=== PATIENT | male | born 1940 | race Caucasian/White ===

== ENCOUNTER → 2016-09-09 | Outpatient (CLI) | payer MEDICARE ==
[~2016-09-09] MED LIST: ASPI-860 PO; CIPR500T4 PO; DIGO125T PO; DILT180C54 PO; LSNP10T PO; METO100T2 PO; PRV20T PO
[2016-09-09 14:21] LABS: MEAN CORPUSCULAR HGB CONC 32.8 g/dL (31.0-37.0); MEAN CORPUSCULAR VOLUME 96 FL (80-100); MEAN PLATELET VOLUME 10.3 FL (6.0-9.5); PLATELET COUNT 473 10^3uL (150-450); WHITE BLOOD COUNT 11.82 10^3uL (4.0-11.0)
[2016-09-09 14:23] LABS: MEAN CORPUSCULAR HEMOGLOBIN 31.4 PG (26.0-34.0)
[2016-09-09 14:26] LABS: BAND NEUTROPHILS % 1 % (0-6); EOSINOPHILS % 1 % (0-4); LYMPHOCYTES # 0.8 #; MONOCYTES # 0.7 #; MONOCYTES % 6 % (3-11); RBC MORPH NORMAL (NORMAL); SEGMENTED NEUTROPHILS % 84 % (51-67); TOTAL CELLS COUNTED 100
[2016-09-09 14:27] LABS: BILIRUBIN,URINE Negative (Negative); CLARITY,URINE Clear; COLOR,URINE Yellow; GLUCOSE, URINE (UA) Negative (Negative); LEUKOCYTE ESTERASE ,URINE Negative (Negative)
[2016-09-09 14:58] LABS: ALBUMIN 4.4 g/dL (3.4-5.0); ANION GAP 13.9 MEQ/L (3-15); CALCULATED IONIZED CALCIUM 4.5 mg/dL (3.8-4.6)
--- NOTE | 2016-09-09 15:01 | Diagnostic Imaging Report ---
INDICATION: Persistent atrial fibrillation. COMPARISON STUDY: Chest from 5 days ago. FINDINGS: Frontal lateral views of the chest demonstrate stable borderline cardiomegaly with normal vascularity. The lungs are clear. The left diaphragm remains elevated. Mild calcifications are seen within the aorta. IMPRESSION: There are no acute findings. Dictated by: Dictated on workstation # [id number]
== END ==
LOC: LAB 14:03
PROVIDERS: ATTEND Family Medicine
DX: I48.1 Persistent atrial fibrillation (principal); R79.89 Other specified abnormal findings of blood chemistry; E78.2 Mixed hyperlipidemia; D50.8 Other iron deficiency anemias; N39.0 Urinary tract infection, site not specified; E03.2 Hypothyroidism due to medicaments and other exogenous substances; M81.0 Age-related osteoporosis without current pathological fracture
CPT/HCPCS: 36415; 71020; 80053; 80061; 80162; 81003; 82306; 84436; 84443; 85025; 93005

== ENCOUNTER 2016-09-27 13:15 | Emergency (ER) | payer MEDICARE ==
[~2016-09-27] VITALS: Ht 175.3 cm; Wt 76.7 kg
--- NOTE | 2016-09-27 14:40 | NUR ---
LEG BAG APPLIED AND TEACHING DONE ON THE CHANGING OF THE BAGS AND DRAINING THE URINE
[2016-09-27 15:23] VITALS: BP 124/74
[2016-09-27 19:22] LABS: BILIRUBIN,URINE Negative (Negative); CLARITY,URINE Clear; COLOR,URINE Yellow; GLUCOSE, URINE (UA) Negative (Negative); LEUKOCYTE ESTERASE ,URINE Negative (Negative); PH,URINE 6.5 (5.0 - 8.0); UROBILINOGEN,URINE 0.2 mg/dL (0.2-1.0)
[2016-09-27 19:41] LABS: URINE CENTRIFUGED VOLUME 12 mL
== END 2016-09-27 15:24 | disposition home or self-care (01) ==
LOC: ED 13:16
DX: N40.1 Benign prostatic hyperplasia with lower urinary tract symptoms (principal); R33.8 Other retention of urine
CPT/HCPCS: 51702; 81003; 81015; 99283

== ENCOUNTER → 2016-10-30 | Outpatient (CLI) | payer MEDICARE ==
[2016-10-30 15:20] LABS: BILIRUBIN,URINE Negative (Negative); CLARITY,URINE Clear; COLOR,URINE Yellow; GLUCOSE, URINE (UA) Negative (Negative); LEUKOCYTE ESTERASE ,URINE Negative (Negative)
== END ==
LOC: LAB 14:44
PROVIDERS: ATTEND Family Medicine
DX: R31.0 Gross hematuria (principal); N41.9 Inflammatory disease of prostate, unspecified
CPT/HCPCS: 36415; 81003; 84153

== ENCOUNTER 2016-12-18 13:04 | Emergency (ER) | payer MEDICARE ==
[~2016-12-18] VITALS: Ht 175.3 cm; Wt 72.4 kg
--- OUTSIDE RECORDS SUMMARY | 2016-12-18 13:16 | XMS REPORT | Continuity of Care Document ---
Author Author 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 04/21/2012 Ot E920.4 ACCID-OTHER HAND TOOLS 08/22/2014 Ot 244.9 08/22/2014 Ot 272.0 08/22/2014 Ot 285.9 08/22/2014 Ot 427.31 08/22/2014 Ot 599.0 08/22/2014 Ot 733.00 08/22/2014 Ot 790.6 08/22/2014 Ot V76.44 08/22/2014 Ot 272.0 08/22/2014 Ot 790.6 08/22/2014 Ot V58.69 08/22/2014 HANNAH SPEARS, RILEY Stevens Ot 786.50 08/22/2014 HANNAH SPEARS, RILEY Stevens Ot 789.00 08/22/2014 HANNAH SPEARS, RILEY Stevens Ot 272.0 08/22/2014 HANNAH SPEARS, RILEY Stevens Ot 426.4 08/22/2014 HANNAH SPEARS, RILEY Stevens Ot 427.31 08/22/2014 HANNAH SPEARS, RILEY Stevens Ot 790.93 08/22/2014 HANNAH SPEARS, RILEY Stevens Ot 790.6 08/22/2014 HANNAH SPEARS, RILEY Stevens Ot 793.11 12/28/2014 HANNAH SPEARS, RILEY Stevens Ot 272.0 12/28/2014 HANNAH SPEASR, RILEY Stevens Ot 285.9 12/28/2014 HANNAH SPEARS, RILEY Stevens Ot 427.31 12/28/2014 HANNAH SPEARS, RILEY Stevens Ot 599.0 12/28/2014 HANNAH SPEARS, RILEY R Ot 786.2 12/28/2014 HANNAH SPEARS, RILEY R Ot V76.44 01/19/2015 HANNAH SPEARS, RILEY R Ot 272.0 01/19/2015 HANNAH SPEARS, RILEY R Ot 285.9 01/19/2015 HANNAH SPEARS, RILEY R Ot 427.31 01/19/2015 HANNAH SPEARS, RILEY R Ot 599.0 01/19/2015 HANNAH SPEARS, RILEY R Ot 786.2 01/19/2015 HANNAH SPEARS, RILEY R Ot V76.44 08/17/2015 Ot 244.9 08/17/2015 Ot 272.0 08/17/2015 Ot 285.9 08/17/2015 Ot 427.31 08/17/2015 Ot 599.0 08/17/2015 Ot 733.00 08/17/2015 Ot 790.6 08/17/2015 Ot V76.44 08/17/2015 Ot 272.0 08/17/2015 Ot 790.6 08/17/2015 Ot V58.69 08/17/2015 HANNAH SPEARS, RILEY R Ot 786.50 08/17/2015 HANNAH SPEARS, RILEY R Ot 789.00 08/17/2015 HANNAH SPEARS, RILEY R Ot 272.0 08/17/2015 HANNAH SPEARS, RILEY R Ot 426.4 08/17/2015 HANNAH SPEARS, RILEY R Ot 427.31 08/17/2015 HANNAH SPEARS, RILEY R Ot 790.93 08/17/2015 HANNAH SPEARS, RILEY R Ot 790.6 08/17/2015 HANNAH SPEARS, RILEY R Ot 793.11 08/17/2015 HANNAH SPEARS, RILEY R Ot 272.0 08/17/2015 HANNAH SPEARS, RILEY R Ot 285.9 08/17/2015 HANNAH SPEARS, RILEY R Ot 427.31 08/17/2015 HANNAH SPEARS, RILEY R Ot 599.0 08/17/2015 HANNAH SPEARS, RILEY R Ot 786.2 08/17/2015 HANNAH SPEARS, RILEY R Ot V76.44 09/04/2015 Ot 244.9 09/04/2015 Ot 272.0 09/04/2015 Ot 285.9 09/04/2015 Ot 427.31 09/04/2015 Ot 599.0 09/04/2015 Ot 733.00 09/04/2015 Ot 790.6 09/04/2015 Ot V76.44 09/04/2015 Ot 272.0 09/04/2015 Ot 790.6 09/04/2015 Ot V58.69 09/04/2015 HANNAH SPEARS, RILEY R Ot 786.50 09/04/2015 HANNAH SPEARS, RILEY R Ot 789.00 09/04/2015 HANNAH SPEARS, RILEY R Ot 272.0 09/04/2015 HANNAH SPEARS, RILEY R Ot 426.4 09/04/2015 HANNAH SPEARS, RILEY R Ot 427.31 09/04/2015 HANNAH SPEARS, RILEY R Ot 790.93 09/04/2015 HANNAH SPEARS, RILEY R Ot 790.6 09/04/2015 HANNAH SPEARS, RILEY R Ot 793.11 09/04/2015 HANNAH SPEARS, RILEY R Ot 272.0 09/04/2015 HANNAH SPEARS, RILEY R Ot 285.9 09/04/2015 HANNAH SPEARS, RILEY R Ot 427.31 09/04/2015 HANNAH SPEARS, RILEY R Ot 599.0 09/04/2015 HANNAH SPEARS, RILEY R Ot 786.2 09/04/2015 HANNAH SPEARS, RILEY R Ot V76.44 10/08/2015 HANNAH SPEARS, RILEY R Ot D50.8 10/08/2015 HANNAH SPEARS, RILEY R Ot E03.4 10/08/2015 HANNAH SPEARS, RILEY R Ot E78.0 10/08/2015 HANNAH SPEARS, RILEY R Ot I48.1 10/08/2015 HANNAH SPEARS, RILEY R Ot M81.0 10/08/2015 HANNAH SPEARS, RILEY R Ot N39.0 10/08/2015 HANNAH SPEARS, RILEY R Ot R79.89 10/10/2015 HANNAH SPEARS, RILEY R Ot D50.8 10/10/2015 HANNAH SPEARS, RILEY R Ot E03.4 10/10/2015 HANNAH SPEARS, RILEY R Ot E78.0 10/10/2015 HANNAH SPEARS, RILEY R Ot I48.1 10/10/2015 HANNAH SPEARS, RILEY R Ot M81.0 10/10/2015 HANNAH SPEARS, RILEY R Ot N39.0 10/10/2015 HANNAH SPEARS, RILEY R Ot R79.89 10/10/2015 HANNAH SPEARS, RILEY R Ot D50.8 10/10/2015 HANNAH SPEARS, RILEY R Ot E03.4 10/10/2015 HANNAH SPEARS, RILEY R Ot E78.0 10/10/2015 HANNAH SPEARS, RILEY R Ot I48.1 10/10/2015 HANNAH SPEARS, RILEY R Ot M81.0 10/10/2015 HANNAH SPEARS, RILEY R Ot N39.0 10/10/2015 HANNAH SPEARS, RILEY R Ot R79.89 11/17/2015 Ot 244.9 11/17/2015 Ot 272.0 11/17/2015 Ot 285.9 11/17/2015 Ot 427.31 11/17/2015 Ot 599.0 11/17/2015 Ot 733.00 11/17/2015 Ot 790.6 11/17/2015 Ot V76.44 11/17/2015 Ot 272.0 11/17/2015 Ot 790.6 11/17/2015 Ot V58.69 11/17/2015 HANNAH SPEARS, RILEY R Ot 786.50 11/17/2015 HANNAH SPEARS, RILEY R Ot 789.00 11/17/2015 HANNAH SPEARS, RILEY R Ot 272.0 11/17/2015 HANNAH SPEARS, RILEY R Ot 426.4 11/17/2015 HANNAH SPEARS, RILEY R Ot 427.31 11/17/2015 HANNAH SPEARS, RILEY R Ot 790.93 11/17/2015 HANNAH SPEARS, RILEY R Ot 790.6 11/17/2015 HANNAH SPEARS, RILEY R Ot 793.11 11/17/2015 HANNAH SPEARS, RILEY R Ot 272.0 11/17/2015 HANNAH SPEARS, RILEY R Ot 285.9 11/17/2015 HANNAH SPEARS, RILEY R Ot 427.31 11/17/2015 HANNAH SPEARS, RILEY Stevens Ot 599.0 11/17/2015 HANNAH SPEARS, RILEY Stevens Ot 786.2 11/17/2015 HANNAH SPEARS, RILEY Stevens Ot V76.44 11/17/2015 HANNAH SPEARS, RILEY Stevens Ot D50.8 11/17/2015 HANNAH SPEARS, RILEY Stevens Ot E03.4 11/17/2015 HANNAH SPEARS, RILEY Stevens Ot E78.0 11/17/2015 HANNAH SPEARS, RILEY Stevens Ot I48.1 11/17/2015 HANNAH SPEARS, RILEY Stevens Ot M81.0 11/17/2015 HANNAH SPEARS, RILEY Stevens Ot N39.0 11/17/2015 HANNAH SPEARS, RILEY Stevens Ot R79.89 07/31/2016 Ot 244.9 HYPOTHYROIDISM NOS 07/31/2016 Ot 272.0 PURE HYPERCHOLESTEROLEM 07/31/2016 Ot 285.9 ANEMIA NOS 07/31/2016 Ot 427.31 ATRIAL FIBRILLATION 07/31/2016 Ot 599.0 URIN TRACT INFECTION NOS 07/31/2016 Ot 733.00 OSTEOPOROSIS NOS 07/31/2016 Ot 790.6 ABN BLOOD CHEMISTRY NEC 07/31/2016 Ot V76.44 SCREEN MAL NEOP-PROSTATE 07/31/2016 Ot 272.0 PURE HYPERCHOLESTEROLEM 07/31/2016 Ot 790.6 ABN BLOOD CHEMISTRY NEC 07/31/2016 Ot V58.69 OTH MED,LT,CURRENT USE 07/31/2016 HANNAH SPEARS, RILEY Stevens Ot 786.50 CHEST PAIN NOS 07/31/2016 HANNAH SPEARS, RILEY Stevens Ot 789.00 ABDOMINAL PAIN, UNSPECIFIED SITE 07/31/2016 RILEY YOUNG MD Ot 272.0 PURE HYPERCHOLESTEROLEM 07/31/2016 RILEY YOUNG MD Ot 426.4 RT BUNDLE BRANCH BLOCK 07/31/2016 RILEY YOUNG MD Ot 427.31 ATRIAL FIBRILLATION 07/31/2016 RILEY YOUNG MD Ot 790.93 ELEVATED PROSTATE SPECIFIC ANTIGEN [PSA ] 07/31/2016 RILEY YOUNG MD Ot 790.6 ABN BLOOD CHEMISTRY NEC 07/31/2016 RILEY YOUNG MD Ot 793.11 SOLITARY PULMONARY NODULE 07/31/2016 RILEY YOUNG MD Ot 272.0 PURE HYPERCHOLESTEROLEM 07/31/2016 RILEY YOUNG MD Ot 285.9 ANEMIA NOS 07/31/2016 RILEY YOUNG MD Ot 427.31 ATRIAL FIBRILLATION 07/31/2016 RILEY YOUNG MD Ot 599.0 URIN TRACT INFECTION NOS 07/31/2016 RLIEY YOUNG MD Ot 786.2 COUGH 07/31/2016 RILEY YOUNG MD, Ot V76.44 SCREEN MAL NEOP-PROSTATE 07/31/2016 RILEY YOUNG MD, Ot D50.8 OTHER IRON DEFICIENCY ANEMIAS 07/31/2016 RILEY YOUNG MD, Ot E03.4 ATROPHY OF THYROID (ACQUIRED) 07/31/2016 RILEY YOUNG MD, Ot E78.0 PURE HYPERCHOLESTEROLEMIA 07/31/2016 RILEY YOUNG MD, Ot I48.1 PERSISTENT ATRIAL FIBRILLATION 07/31/2016 RILEY YOUNG MD, Ot M81.0 AGE-RELATED OSTEOPOROSIS W/O CURRENT PAT 07/31/2016 RILEY YOUNG MD, Ot N39.0 URINARY TRACT INFECTION, SITE NOT SPECIF 07/31/2016 RILEY YOUNG MD, Ot R79.89 OTHER SPECIFIED ABNORMAL FINDINGS OF BLO 09/09/2016 RILEY YOUNG MD, Ot E78.2 MIXED HYPERLIPIDEMIA 09/09/2016 RILEY YOUNG MD, Ot I48.1 PERSISTENT ATRIAL FIBRILLATION 09/09/2016 RILEY YOUNG MD, Ot R79.89 OTHER SPECIFIED ABNORMAL FINDINGS OF BLO 09/09/2016 RILEY YOUNG MD, Ot E78.2 MIXED HYPERLIPIDEMIA 09/09/2016 RILEY YOUNG MD, Ot I48.1 PERSISTENT ATRIAL FIBRILLATION 09/09/2016 RILEY YOUNG MD, Ot R79.89 OTHER SPECIFIED ABNORMAL FINDINGS OF BLO 09/10/2016 RILEY YOUNG MD, Ot E78.2 MIXED HYPERLIPIDEMIA 09/10/2016 RILEY YOUNG MD, Ot I48.1 PERSISTENT ATRIAL FIBRILLATION 09/10/2016 RILEY YOUNG MD, Ot R79.89 OTHER SPECIFIED ABNORMAL FINDINGS OF BLO 09/13/2016 RILEY YOUNG MD, Ot D50.8 OTHER IRON DEFICIENCY ANEMIAS 09/13/2016 RILEY YOUNG MD Ot E03.2 HYPOTHYROIDISM DUE TO MEDS AND OTH EXOGE 09/13/2016 RILEY YOUNG MD, Ot E78.2 MIXED HYPERLIPIDEMIA 09/13/2016 RILEY YOUNG MD Ot I48.1 PERSISTENT ATRIAL FIBRILLATION 09/13/2016 RILEY YOUNG MD Ot M81.0 AGE-RELATED OSTEOPOROSIS W/O CURRENT PAT 09/13/2016 RILEY YOUNG MD, Ot N39.0 URINARY TRACT INFECTION, SITE NOT SPECIF 09/13/2016 RILEY YOUNG MD, Ot R79.89 OTHER SPECIFIED ABNORMAL FINDINGS OF BLO 09/16/2016 RILEY YOUNG MD, Ot D50.8 OTHER IRON DEFICIENCY ANEMIAS 09/16/2016 RILEY YOUNG MD, Ot E03.2 HYPOTHYROIDISM DUE TO MEDS AND OTH EXOGE 09/16/2016 RILEY YOUNG MD, Ot E78.2 MIXED HYPERLIPIDEMIA 09/16/2016 RILEY YOUNG MD, Ot I48.1 PERSISTENT ATRIAL FIBRILLATION 09/16/2016 RILEY YOUNG MD, Ot M81.0 AGE-RELATED OSTEOPOROSIS W/O CURRENT PAT 09/16/2016 RILEY YOUNG MD, Ot N39.0 URINARY TRACT INFECTION, SITE NOT SPECIF 09/16/2016 RILEY YOUNG MD Ot R79.89 OTHER SPECIFIED ABNORMAL FINDINGS OF BLO 09/27/2016 CAROLINA SPEARS, CLARKE Villarreal Ot N40.1 BENIGN PROSTATIC HYPERPLASIA WITH LOWER 09/27/2016 CAROLINA SPEARS, CLARKE Villarreal Ot R33.8 OTHER RETENTION OF URINE 09/30/2016 RILEY YOUNG MD Ot D50.8 OTHER IRON DEFICIENCY ANEMIAS 09/30/2016 RILEY YOUNG MD Ot E03.2 HYPOTHYROIDISM DUE TO MEDS AND OTH EXOGE 09/30/2016 RILEY YOUNG MD Ot E78.2 MIXED HYPERLIPIDEMIA 09/30/2016 RILEY YOUNG MD Ot I48.1 PERSISTENT ATRIAL FIBRILLATION 09/30/2016 RILEY YOUNG MD Ot M81.0 AGE-RELATED OSTEOPOROSIS W/O CURRENT PAT 09/30/2016 LARZALERE MD, RILEY R Ot N39.0 URINARY TRACT INFECTION, SITE NOT SPECIF 09/30/2016 RILEY YOUNG MD, Ot R79.89 OTHER SPECIFIED ABNORMAL FINDINGS OF BLO 10/01/2016 CLARKE FIGUEROA MD, Ot N40.1 BENIGN PROSTATIC HYPERPLASIA WITH LOWER 10/01/2016 CLARKE FIGUEROA MD, Ot R33.8 OTHER RETENTION OF URINE 10/08/2016 RILEY YOUNG MD, Ot D50.8 OTHER IRON DEFICIENCY ANEMIAS 10/08/2016 RILEY YOUNG MD, Ot E03.2 HYPOTHYROIDISM DUE TO MEDS AND OTH EXOGE 10/08/2016 RILEY YOUNG MD, Ot E78.2 MIXED HYPERLIPIDEMIA 10/08/2016 RILEY YOUNG MD, Ot I48.1 PERSISTENT ATRIAL FIBRILLATION 10/08/2016 RILEY YOUNG MD, Ot M81.0 AGE-RELATED OSTEOPOROSIS W/O CURRENT PAT 10/08/2016 RILEY YOUNG MD, Ot N39.0 URINARY TRACT INFECTION, SITE NOT SPECIF 10/08/2016 RILEY YOUNG MD, Ot R79.89 OTHER SPECIFIED ABNORMAL FINDINGS OF BLO 10/30/2016 RILEY YOUNG MD, Ot N41.9 INFLAMMATORY DISEASE OF PROSTATE, UNSPEC 10/30/2016 RILEY YOUNG MD, Ot N41.9 INFLAMMATORY DISEASE OF PROSTATE, UNSPEC 10/31/2016 RILEY YOUNG MD, Ot N41.9 INFLAMMATORY DISEASE OF PROSTATE, UNSPEC 11/01/2016 RILEY YOUNG MD, Ot N41.9 INFLAMMATORY DISEASE OF PROSTATE, UNSPEC 11/04/2016 RILEY YOUNG MD, Ot N41.9 INFLAMMATORY DISEASE OF PROSTATE, UNSPEC 11/04/2016 RILEY YOUNG MD, Ot R31.0 GROSS HEMATURIA 11/21/2016 RILEY YOUNG MD, Ot N41.9 INFLAMMATORY DISEASE OF PROSTATE, UNSPEC 11/21/2016 RILEY YOUNG MD, Ot R31.0 GROSS HEMATURIA Procedures Results Test Result Range Complete blood count (CBC) with automated white blood cell (WBC) differential - 09/09/16 14:10 Blood automated leukocyte count 11.82 4.0-11.0 Erythrocytes 4.72 4.50-5.50 12.0-16.0;g/dL 14.8 13.5-17.0 Hematocrit 45.10 39.00-50.00 Automated erythrocyte mean corpuscular volume 96 80-100 Mean corpuscular hemoglobin (MCH) determination 31.4 26.0-34.0 Automated erythrocyte mean corpuscular hemoglobin concentration measurement ( mass/volume) 32.8 31.0-37.0 Erythrocyte distribution width 14.5 11.8 -15.6 Automated blood platelet count 473 150- 450 Automated blood platelet mean volume measurement 10.3 6.0-9.5 Complete blood count, platelets with manual differential - 09/09/16 14:10 Total cell count 100 Blood segmented neutrophils percentage 84 51-67 Blood band neutrophil count as percentage of total leukocytes 1 0-6 LYMPHOCYTES % 7 20-46 Automated monocyte percentage 6 3-11 Eosinophil count auto 1 0-4 Basophils 1 0-2 Manual blood metamyelocytes/100 leukocytes 0 0-1 NEUTROPHILS(SEG) 9.9 NEUTROPHILS # BANDS 0.1 Blood lymphocytes manual count (number/volume) 0.8 Automated blood monocyte count 0.7 Blood absolute eosinophil count 0.1 Basophils 0.1 Erythrocyte morphology assessment NORMAL NORMAL Comprehensive metabolic panel - 09/09/16 14:10 Sodium measurement 90 70-110 Carbon dioxide measurement 32 22-29 Serum or plasma anion gap 13.9 3-15 BLOOD UREA NITROGEN 18 7-18 CREATININE SERUM 0.79 0.8-1.5 Brucella species antibody panel (IgG, IgM) 23 10-20 Estimated glomerular filtration rate (GFR) 115.1 Estimated glomerular filtration rate (GFR) non- 95.1 OSMOLALITY,CALCULATED 271 280-300 CALCIUM 10.0 8.8-10.8 Calculated ionized calcium measurement 4.5 3.8-4.6 BILIRUBIN,TOTAL 2.5 0.1-1.0 Serum or plasma alkaline phosphatase measurement 85 38-126 ASPARTATE AMINO TRANSFERASE 24 15-37 ALANINE AMINOTRANSFERASE 41 30-65 Serum or plasma total protein measurement 7.0 6.4-8.5 Serum or plasma albumin measurement 4.4 3.4-5.0 Serum or plasma albumin/globulin mass ratio 1.692 1.1-1.8 Vitamin D+Metabolites - 09/09/16 14:10 Vitamin D+Metabolites 53.2 30.0-100.0 THYROID STIMULATING HORMONE* - 09/09/16 14:10 THYROID STIMULATING HORMONE 0.71 0.46- 4.68 Thyroxine (T4) measurement - 09/09/16 14:10 Serum or plasma thyroxine (T4) measurement (mass/volume) 7.0 4.8-11.7 LIPID PANEL - 09/09/16 14:10 Cholesterol 117 50-200 HDL Cholesterol 51 40-60 Triglycerides 62 10-150 LDL CHOLESTEROL 54 50-130 VLDL Cholesterol, calc 12 4.00-40.00 Cholesterol.total/Cholesterol.in HDL 2.3 0.0-5.0 Digoxin level - 09/09/16 14:10 Digoxin level 0.50 0.90-2.00 UA CULTURE IF INDICATED* - 09/09/16 14:14 COLLECTION METHOD RANDOM VOIDED Color of urine by auto Yellow Urine appearance determination Clear Urine pH measurement by automated test strip 7.0 5.0 - 8.0 Specific gravity of urine by automated test strip 1.015 1.005-1.030 Urine protein measurement by test strip (mass/volume) Negative Negative Urine glucose detection by automated test strip Negative Negative Urine erythrocytes count by automated test strip (number/volume) Negative Negative Urine ketones detection by automated test strip Negative Negative Urine nitrite detection by test strip Negative Negative Urine total bilirubin detection by automated test strip Negative Negative Urine urobilinogen measurement by automated test strip (mass/volume) 1.0 0.2-1.0 Urine leukocyte esterase detection by dipstick Negative Negative UA CULTURE IF INDICATED* - 09/27/16 13:35 COLLECTION METHOD CATHETER Color of urine by auto Yellow Urine appearance determination Clear Urine pH measurement by automated test strip 6.5 5.0 - 8.0 Specific gravity of urine by automated test strip 1.015 1.005-1.030 Urine protein measurement by test strip (mass/volume) Negative Negative Urine glucose detection by automated test strip Negative Negative Urine erythrocytes count by automated test strip (number/volume) Trace-intact Negative Urine ketones detection by automated test strip Negative Negative Urine nitrite detection by test strip Negative Negative Urine total bilirubin detection by automated test strip Negative Negative Urine urobilinogen measurement by automated test strip (mass/volume) 0.2 0.2-1.0 Urine leukocyte esterase detection by dipstick Negative Negative Microscopic examination of urine - 09/27/16 13:35 Urine volume measurement 12 mL Urine erythrocytes detection by automated method 2-5 Automated urine sediment leukocyte count by microscopy (number/high power field ) Bacteria None Seen SQUAMOUS EPITHELIAL CELL,UR 0-2 MUCOUS,URINE 1+ Prostate specific Ag - 10/30/16 14:49 Prostate specific Ag 3.9 0.0-4.0 UA CULTURE IF INDICATED* - 10/30/16 15:00 COLLECTION METHOD CLEAN CATCH Color of urine by auto Yellow Urine appearance determination Clear Urine pH measurement by automated test strip 7.0 5.0 - 8.0 Specific gravity of urine by automated test strip 1.015 1.005-1.030 Urine protein measurement by test strip (mass/volume) Negative Negative Urine glucose detection by automated test strip Negative Negative Urine erythrocytes count by automated test strip (number/volume) Negative Negative Urine ketones detection by automated test strip Negative Negative Urine nitrite detection by test strip Negative Negative Urine total bilirubin detection by automated test strip Negative Negative Urine urobilinogen measurement by automated test strip (mass/volume) 1.0 0.2-1.0 Urine leukocyte esterase detection by dipstick Negative Negative Encounters ACCT No. Visit Date/Time Discharge Status Pt. Type Provider Facility Loc./Unit Complaint [id number] 09/27/2016 13:16:00 2016 15:24:00 DIS Emergency CAROLINA SPEARS, [facility] ED [id number] 08/22/2014 14:28:00 2013 23:59:59 CLS Outpatient HANNAH SPEARS, [facility] RAD RAD LAB EKG [id number] 11/16/2013 09:28:00 2013 23:59:59 CLS Outpatient HANNAH SPEARS, [facility] RAD LT LUNG NODULE [id number] 08/18/2013 11:47:00 2012 23:59:59 CLS Outpatient HANNAH SPEARS, [facility] LAB [id number] 06/20/2013 12:35:00 2012 23:59:59 CLS Outpatient HANNAH SPEARS [facility] LAB [id number] 10/30/2016 14:44:00 ACT Outpatient HANNAH SPEARS , [facility] LAB [id number] 09/09/2016 14:03:00 ACT Outpatient HANNAH SPEARS [facility] LAB LAB, RAD, RT [id number] 09/04/2015 14:09:00 ACT Outpatient HANNAH SPEARS , [facility] LAB LAB, RAD, EKG [id number] 11/09/2012 11:50:00 Document Registration [id number] 08/03/2012 11:58:00 Document Registration [id number] 04/21/2012 12:08:00 Document Registration
[2016-12-18] MEDS ORDERED: NS IV 500 ML 500 ML IV SCH ×2 (13:40→15:05)
[2016-12-18] MEDS ORDERED: SODIUM CHLORIDE FLUSH 3 ML SYR IV PRN (13:45)
[2016-12-18] MEDS: SODIUM CHLORIDE FLUSH 10 ML SYR IV PRN ×2 (14:09→15:04)
[2016-12-18 14:11] LABS: MEAN CORPUSCULAR HEMOGLOBIN 30.9 PG (26.0-34.0); MEAN CORPUSCULAR HGB CONC 33.2 g/dL (31.0-37.0); MEAN CORPUSCULAR VOLUME 93 FL (80-100); MEAN PLATELET VOLUME 10.4 FL (6.0-9.5); PLATELET COUNT 452 10^3uL (150-450); WHITE BLOOD COUNT 12.09 10^3uL (4.0-11.0)
[2016-12-18 14:21] LABS: BAND NEUTROPHILS % 3 % (0-6); EOSINOPHILS % 1 % (0-4); LYMPHOCYTES # 0.8 #; MONOCYTES # 0.7 #; MONOCYTES % 6 % (3-11); RBC MORPH NORMAL (NORMAL); SEGMENTED NEUTROPHILS % 83 % (51-67); TOTAL CELLS COUNTED 100
[2016-12-18 14:23] LABS: ALBUMIN 4.2 g/dL (3.4-5.0); ALKALINE PHOSPHATASE 75 U/L (38-126); ANION GAP 17.3 MEQ/L (3-15); BUN/CREATININE RATIO 15 (10-20); CALCULATED IONIZED CALCIUM 4.2 mg/dL (3.8-4.6); TOTAL PROTEIN 6.9 g/dL (6.4-8.5)
[2016-12-18 15:00] VITALS: BP 95/63
--- NOTE | 2016-12-18 15:45 | NUR ---
[facility]AN APPLIED OVER TEGRADERM AT LT [facility] SITE BY Liudmila ROSALES RN.
== END 2016-12-18 15:52 | disposition home or self-care (01) ==
LOC: EDUNIT# 13:04 → ED 13:11
DX: R55 Syncope and collapse (principal); I95.9 Hypotension, unspecified; S50.812A Abrasion of left forearm, initial encounter; W01.198S Fall on same level from slipping, tripping and stumbling with subsequent striking against other object, sequela; Y93.89 Activity, other specified; Y92.511 Restaurant or cafe as the place of occurrence of the external cause
CPT/HCPCS: 36415; 80053; 84484; 85025; 93005; 96360; 99285; J7040; 93010; 99284